=== PATIENT | female | born 1965 | race Caucasian/White ===

== ENCOUNTER 2016-10-07 09:50 | Observation (INO) | payer BC ==
[2016-10-07] MEDS ORDERED: ASPIRIN 81 MG TABLET, CHEWABLE PO ONE (09:52)
[2016-10-07 10:19] LABS: ABSOLUTE BASOPHILS # (AUTO) 0.1 10^3/uL (0.0-0.2); ABSOLUTE EOSINOPHILS # (AUTO) 0.4 10^3/uL (0.0-0.6); ABSOLUTE LYMPHOCYTES (AUTO) 1.8 10^3/uL (0.5-4.7); ABSOLUTE MONOCYTES (AUTO) 0.4 10^3/uL (0.1-1.4); ABSOLUTE NEUT (AUTO) 4.6 10^3/uL (1.7-8.2); HEMATOCRIT 39.1 % (36.0-47.0); HGB HCT DIFFERENCE -0.1; LYMPHOCYTES % (AUTO) 25.4 % (13-45); MEAN CORPUSCULAR HEMOGLOBIN 26.4 pg (27.0-33.4); MEAN CORPUSCULAR HGB CONC 33.3 g/dL (32.0-36.0); MEAN CORPUSCULAR VOLUME 79 fl (80-97); MONOCYTES % (AUTO) 6.1 % (3-13); RED BLOOD COUNT 4.93 10^6/uL (3.72-5.28); RED CELL DISTRIBUTION WIDTH 15.2 % (11.5-14.0); SEGMENTED NEUTROPHILS % (AUTO) 62.5 % (42-78); WHITE BLOOD COUNT 7.3 10^3/uL (4.0-10.5)
--- NOTE | 2016-10-07 10:26 | ER Document Report ---
ED Cardiac - General Mode of Arrival: Medic Information source: Patient - HPI Patient complains to provider of: Chest pain, Shortness of breath - mild Quality of pain: Other - see above Chest pain radiation location: Neck - left Chest pain precipitating factors: singing Cardiac risk factors: + Family history - HTN Associated symptoms: Other - see above <FANTA SHIRLEY - Last Filed: 10/07/16 10:21> <DEONNA TY - Last Filed: 10/07/16 14:25> - General Chief Complaint: Chest Pain Stated Complaint: CHEST PAIN Notes: 50 year old female with no prior medical history presents to the ED via EMS complaining of chest pain that started at 0900 this morning 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 Patient describes the pain as if "someone grabbed her heart and squeezed." The pain radiated up her left neck and lasted for 4-5 minutes. Patient reports mild shortness of breath and diaphoresis, but denies nausea. Patient's friend states that one of her co-workers might have noticed some facial drooping while she was having the chest pain. Patient states that she has had chest pain similar to this months ago lasting "a second ", but never radiating to her neck. Patient has a family history of hypertension. Patient's primary care provider is Jayden Guillermo. (FANTA SHIRLEY) - Related Data Allergies/Adverse Reactions: No Known Allergies Allergy (Verified 10/07/16 10:12) Past Medical History - General Information source: Patient - Social History Smoking Status: Never Smoker Family History: Hypertension - Medical History Medical History: Negative Past Surgical History: Reports: Hx Appendectomy, Hx Breast Surgery - reduction, Hx Cholecystectomy, Hx Tonsillectomy, Hx Tubal Ligation <FANTA SHIRLEY - Last Filed: 10/07/16 10:21> Review of Systems - Review of Systems Constitutional: See HPI, Diaphoresis EENT: No symptoms reported Cardiovascular: See HPI, Chest pain Respiratory: See HPI, Short of breath - mild Gastrointestinal: No symptoms reported. denies: Nausea Genitourinary: No symptoms reported Female Genitourinary: No symptoms reported Musculoskeletal: See HPI, Neck pain - chest pain that radiates to left neck Skin: No symptoms reported Hematologic/Lymphatic: No symptoms reported Neurological/Psychological: No symptoms reported -: Yes All other systems reviewed and negative <SHIRLEYFANTA - Last Filed: 10/07/16 10:21> Physical Exam - General General appearance: Alert In distress: None - HEENT Head: Normocephalic, Atraumatic Eyes: Normal Extraocular movements intact: Yes Pupils: PERRL Neck: Normal. No: Carotid bruit - Respiratory Respiratory status: No respiratory distress Chest status: Nontender - no chest wall tenderness to palpation Breath sounds: Normal Chest palpation: Normal - Cardiovascular Rhythm: Regular Heart sounds: Normal auscultation Pulses: Normal: Radial - Abdominal Inspection: Normal, Obese - Back Back: Normal - Extremities General upper extremity: Normal inspection, Normal ROM General lower extremity: Normal inspection, Normal ROM - Neurological Neuro grossly intact: Yes - Psychological Associated symptoms: Normal affect, Normal mood - Skin Skin Temperature: Warm Skin Moisture: Dry Skin Color: Normal <FANTA SHIRLEY - Last Filed: 10/07/16 10:21> <DEONNA TY - Last Filed: 10/07/16 14:25> - Vital signs Vitals: Resp BP Pulse Ox 10 L 140/84 H 97 10/07/16 10:04 10/07/16 10:04 10/07/16 10:04 (FANTA SHIRLEY) (DEONNA TY) Course - Laboratory Result Diagrams: 10/07/16 09:58 10/07/16 09:58 <FANTA SHIRLEY - Last Filed: 10/07/16 10:21> - Laboratory Result Diagrams: 10/07/16 09:58 10/07/16 09:58 - Diagnostic Test Radiology reviewed: Image reviewed, Reports reviewed - Chest x-ray does not show acute process - EKG Interpretation by Nm EKG shows normal: Sinus rhythm, [place], Intervals, QRS Complexes. abnormal: ST-T Waves - Poor R-wave progression in the anterior leads Rate: Normal - 64 Rhythm: NSR When compared to previous EKG there are: Previous EKG unavailable - Consults Dr. Amor Time consulted: 13:52 Consulted provider: will come to ER <DEONNA TY - Last Filed: 10/07/16 14:25> - Vital Signs Vital signs: Temp Pulse Resp BP Pulse Ox 97.9 F 14 124/81 97 10/07/16 10:09 10/07/16 13:01 10/07/16 13:01 10/07/16 13:01 (FANTA SHIRLEY) (DEONNA TY) - Laboratory Laboratory results interpreted by me: 10/07/16 09:58 MCV 79 L MCH 26.4 L RDW 15.2 H (DEONNA TY) Discharge <FANTA SHIRLEY - Last Filed: 10/07/16 10:21> - Discharge Admitting Provider: Hospitalist Unit Admitted: Telemetry <DEONNA TY - Last Filed: 10/07/16 14:25> - Discharge Clinical Impression: Chest pain Qualifiers: Chest pain type: unspecified Qualified Code(s): R07.9 - Chest pain, unspecified Condition: Stable Disposition: ADMITTED OBSERVATION Scribe Attestation: 10/07/16 14:25 I personally performed the services described in the documentation, reviewed and edited the documentation which was dictated to the scribe in my presence, and it accurately records my words and actions. (DEONNA TY) Scribe Documentation - Scribe Written by Donavon:: Donavon Silva, 10/07/2016 1031 acting as scribe for :: Elliot <FANTA SHIRLEY - Last Filed: 10/07/16 10:21>
--- NOTE | 2016-10-07 10:29 | EKG REPORT ---
SEVERITY:- ABNORMAL ECG - SINUS RHYTHM ANTERIOR INFARCT, OLD : Confirmed by: Danielle Fulton 07-Oct-2016 10:28:00
[2016-10-07 10:38] LABS: ALANINE AMINOTRANSFERASE 29 U/L (9-52); ALBUMIN 4.8 g/dL (3.5-5.0); ALKALINE PHOSPHATASE 75 U/L (38-126); ANION GAP 13 (5-19); ASPARTATE AMINO TRANSFERASE 26 U/L (14-36); BILIRUBIN,TOTAL 0.7 mg/dL (0.2-1.3); BLOOD UREA NITROGEN 13 mg/dL (7-20); CALCIUM 9.9 mg/dL (8.4-10.2); CARBON DIOXIDE 25 mmol/L (22-30); CHLORIDE 101 mmol/L (98-107); CREATINE KINASE 85 U/L (30-135); CREATININE RESULT 0.83 mg/dL (0.52-1.25); GLUCOSE 92 mg/dL (75-110); POTASSIUM 4.7 mmol/L (3.6-5.0); SODIUM 138.8 mmol/L (137-145)
[2016-10-07 10:50] LABS: CREATINE KINASE MB 0.99 ng/mL (<4.55)
[2016-10-07 10:54] LABS: TROPONIN I < 0.012 ng/mL
[2016-10-07] MEDS ORDERED: ONDANSETRON 4 MG TAB.RAPDIS PO PRN (14:47)
[2016-10-07] MEDS ORDERED: ACETAMINOPHEN 325 MG TABLET PO PRN (14:47)
--- NOTE | 2016-10-07 15:05 | PDOC H&P ---
History of Present Illness Admission Date/PCP: 10/07/2016 Patient complains of: Chest pain History of Present Illness: JAI SAUCEDA is a 50 year old female with no past medical history and takes no medications whose both parents are still alive presents with chest pain. She describes the pain as a substernal grabbing sensation that radiated up into her neck. 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 The patient that morning and had a 16 ounce cup of coffee along with a donut for her breakfast. Patient reports that she has had similar episodes before over the last several years but they have lasted only for a short period of time. The patient reports the pain lasted about 2 or 3 minutes and resolved spontaneously. EMS was called because of her pain and her blood pressure was noted to be elevated at that time. Her blood pressure since has returned to normal. The patient denies any nausea or diaphoresis associated with this. She denies any palpitations. She reports that she had a stress test about 3 years ago and it was normal. The patient has a history of anxiety but is not on any medications reports that she's been feeling very good overall. She denies any dyspnea on exertion. She denies any orthopnea PND or lower extremity edema. She denies any difficulty with exertion. She has no family history of heart disease. Past Medical History Cardiac Medical History: Reports: None Pulmonary Medical History: Reports: None EENT Medical History: Reports: None Neurological Medical History: Reports: None Endocrine Medical History: Reports: None Malignancy Medical History: Reports: None GI Medical History: Reports: None Musculoskeltal Medical History: Reports: None Skin Medical History: Reports: None Psychiatric Medical History: Reports: General Anxiety Disorder Traumatic Medical History: Reports: None Hematology: Reports: None Infectious Medical History: Reports: None Past Surgical History Past Surgical History: Reports: Appendectomy, Cholecystectomy, Tonsillectomy, Tubal Ligation Social History Information Source: Patient Lives with: Spouse/Significant other Smoking Status: Never Smoker Frequency of Alcohol Use: Rare Hx Recreational Drug Use: No Drugs: None - Advance Directive Resuscitation Status: Full Code Family History Family History: Hypertension Family History: Father is alive 75. His diabetes and hypertension. Mother 73 alive and has diabetes and breast cancer. Parental Family History Reviewed: Yes Children Family History Reviewed: No Sibling(s) Family History Reviewed.: No Medication/Allergy Allergies/Adverse Reactions: No Known Allergies Allergy (Verified 10/07/16 10:12) Review of Systems Constitutional: ABSENT: chills, fever(s), headache(s), weight gain, weight loss Eyes: ABSENT: visual disturbances Ears: ABSENT: hearing changes Cardiovascular: PRESENT: as per HPI Respiratory: ABSENT: cough, hemoptysis Gastrointestinal: ABSENT: abdominal pain, constipation, diarrhea, hematemesis, hematochezia, nausea, vomiting Genitourinary: ABSENT: dysuria, hematuria Musculoskeletal: ABSENT: joint swelling Integumentary: ABSENT: rash, wounds Neurological: ABSENT: abnormal gait, abnormal speech, confusion, dizziness, focal weakness, syncope Psychiatric: ABSENT: anxiety, depression, homidical ideation, suicidal ideation Endocrine: ABSENT: cold intolerance, heat intolerance, polydipsia, polyuria Hematologic/Lymphatic: ABSENT: easy bleeding, easy bruising Physical Exam Vital Signs: Temp Pulse Resp BP Pulse Ox 97.9 F 15 105/63 96 10/07/16 10:09 10/07/16 14:01 10/07/16 14:01 10/07/16 14:01 Intake & Output 10/06/16 10/07/16 10/08/16 06:59 06:59 06:59 Weight 97.5 kg General appearance: PRESENT: no acute distress, obese Head exam: PRESENT: atraumatic, normocephalic Eye exam: PRESENT: conjunctiva pink, EOMI, PERRLA. ABSENT: scleral icterus Ear exam: PRESENT: normal external ear exam Mouth exam: PRESENT: moist, tongue midline Neck exam: ABSENT: carotid bruit, JVD, lymphadenopathy, thyromegaly Respiratory exam: PRESENT: clear to auscultation derek. ABSENT: rales, rhonchi, wheezes Cardiovascular exam: PRESENT: RRR. ABSENT: diastolic murmur, rubs, systolic murmur Pulses: PRESENT: normal dorsalis pedis pul Vascular exam: PRESENT: normal capillary refill GI/Abdominal exam: PRESENT: normal bowel sounds, soft. ABSENT: distended, guarding, mass, organolmegaly, rebound, tenderness Rectal exam: PRESENT: deferred Extremities exam: PRESENT: full ROM. ABSENT: calf tenderness, clubbing, pedal edema Neurological exam: PRESENT: alert, awake, oriented to person, oriented to place , oriented to time, oriented to situation, CN II-XII grossly intact. ABSENT: motor sensory deficit Psychiatric exam: PRESENT: appropriate affect, normal mood Skin exam: PRESENT: dry, intact, warm. ABSENT: cyanosis, rash Results Laboratory Results: 10/07/16 09:58 10/07/16 09:58 10/07/16 10/07/16 09:58 09:58 WBC 7.3 RBC 4.93 Hgb 13.0 Hct 39.1 MCV 79 L MCH 26.4 L MCHC 33.3 RDW 15.2 H Plt Count 365 Seg Neutrophils % 62.5 Lymphocytes % 25.4 Monocytes % 6.1 Eosinophils % 5.0 Basophils % 1.0 Absolute Neutrophils 4.6 Absolute Lymphocytes 1.8 Absolute Monocytes 0.4 Absolute Eosinophils 0.4 Absolute Basophils 0.1 Sodium 138.8 Potassium 4.7 Chloride 101 Carbon Dioxide 25 Anion Gap 13 BUN 13 Creatinine 0.83 Est GFR ( Amer) > 60 Est GFR (Non-Af Amer) > 60 Glucose 92 Calcium 9.9 Total Bilirubin 0.7 AST 26 ALT 29 Alkaline Phosphatase 75 Total Protein 8.0 Albumin 4.8 10/07/16 10/07/16 10/07/16 09:58 09:58 12:02 Creatine Kinase 85 CK-MB (CK-2) 0.99 Troponin I < 0.012 < 0.012 Impressions: Chest X-Ray 10/07/16 09:52 IMPRESSION: NO ACUTE RADIOGRAPHIC FINDING IN THE CHEST. Assessment & Plan - Diagnosis (1) Chest pain Qualifiers: Chest pain type: unspecified Qualified Code(s): R07.9 - Chest pain, unspecified Is this a current diagnosis for this admission?: YesPlan: The patient has no risk factors for heart disease. It's highly unlikely that this represents coronary artery disease. We will monitor on telemetry however and check serial cardiac enzyme. We'll treat with a baby aspirin daily. Most likely represents gastroesophageal reflux disease in the patient is instructed to stop drinking caffeinated drinks. - Time Time Spent: 50 to 70 Minutes - Plan Summary Plan Summary: We'll admit as an observation as I anticipate this will require less than two midnight hospital stay.
[2016-10-07 15:42] LABS: CREATINE KINASE MB 0.87 ng/mL (<4.55)
[2016-10-07 15:43] LABS: TROPONIN I < 0.012 ng/mL
[2016-10-07 22:20] LABS: TROPONIN I < 0.012 ng/mL
[2016-10-08 04:36] LABS: CREATINE KINASE MB 0.59 ng/mL (<4.55)
[2016-10-08 04:38] LABS: TROPONIN I < 0.012 ng/mL
[2016-10-08] MEDS ORDERED: ASPIRIN 81 MG TABLET, ENT COATED PO SCH (10:00)
--- NOTE | 2016-10-08 12:55 | EKG REPORT ---
SEVERITY:- ABNORMAL ECG - SINUS RHYTHM PROBABLE ANTEROSEPTAL INFARCT, AGE INDETERM : Confirmed by: Danielle Fulton 08-Oct-2016 12:54:35
[2016-10-08 16:17] VITALS: BP 126/79
--- NOTE | 2016-10-08 16:17 | PDOC DISCHARGE SUMMARY ---
General - Admit/Disc Date/PCP Admission Date/Primary Care Provider: 10/07/16 14:47 Discharge Date: 10/08/16 - Discharge Diagnosis (1) Chest pain Is this a current diagnosis for this admission?: YesSummary: Most likely secondary to gastroesophageal reflux disease with a normal Cardiolite stress test - Additional Information Resuscitation Status: Full Code Discharge Diet: Regular Discharge Activity: Activity As Tolerated Home Medications: Aspirin [Aspirin EC] 81 mg PO DAILY PRN #1 pkg 10/08/16 Omeprazole Magnesium [Prilosec Otc] 20 mg PO DAILY #1 tablet. 10/08/16 History of Present Illness History of Present Illness: JAI SAUCEDA is a 50 year old female with no past medical history and takes no medications whose both parents are still alive presents with chest pain. She describes the pain as a substernal grabbing sensation that radiated up into her neck. 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 The patient that morning and had a 16 ounce cup of coffee along with a donut for her breakfast. Patient reports that she has had similar episodes before over the last several years but they have lasted only for a short period of time. The patient reports the pain lasted about 2 or 3 minutes and resolved spontaneously. EMS was called because of her pain and her blood pressure was noted to be elevated at that time. Her blood pressure since has returned to normal. The patient denies any nausea or diaphoresis associated with this. She denies any palpitations. She reports that she had a stress test about 3 years ago and it was normal. The patient has a history of anxiety but is not on any medications reports that she's been feeling very good overall. She denies any dyspnea on exertion. She denies any orthopnea PND or lower extremity edema. She denies any difficulty with exertion. She has no family history of heart disease. Hospital Course Hospital Course: 50-year-old female with no significant risk factors who presented with chest pain. She was monitored on telemetry and had negative cardiac enzymes. She then underwent a Cardiolite stress test which was negative for any reversible ischemia. It's felt this most likely represents gastroesophageal reflux disease. She is instructed to take Prilosec [id number] along with an aspirin 81 mg daily. We'll have her follow up with cardiology in 2 weeks to see if she still having pain and see if she needs any further workup. The most likely the cause is gastroesophageal reflux disease. Physical Exam Vital Signs: Temp Pulse Resp BP Pulse Ox 98.0 F 85 14 124/65 99 10/08/16 16:04 10/08/16 16:04 10/08/16 16:04 10/08/16 16:04 10/08/16 16:04 Intake & Output 10/07/16 10/08/16 10/09/16 06:59 06:59 06:59 Intake Total 560 Balance 560 Weight 97.5 kg General appearance: PRESENT: no acute distress Eye exam: PRESENT: conjunctiva pink. ABSENT: scleral icterus Ear exam: PRESENT: normal external ear exam Mouth exam: PRESENT: moist, tongue midline Neck exam: ABSENT: JVD Respiratory exam: PRESENT: clear to auscultation derek. ABSENT: rales, rhonchi, wheezes Cardiovascular exam: PRESENT: RRR. ABSENT: diastolic murmur, rubs, systolic murmur GI/Abdominal exam: PRESENT: normal bowel sounds, soft. ABSENT: distended, guarding, mass, organolmegaly, rebound, tenderness Extremities exam: ABSENT: calf tenderness, clubbing, pedal edema Neurological exam: PRESENT: alert, awake, oriented to person, oriented to place , oriented to time, oriented to situation Skin exam: PRESENT: dry, intact, warm. ABSENT: cyanosis, rash Results Laboratory Results: 10/07/16 10/07/16 10/07/16 15:07 15:07 21:30 Creatine Kinase 65 69 CK-MB (CK-2) 0.87 Troponin I < 0.012 10/07/16 10/08/16 10/08/16 21:30 03:42 03:42 Creatine Kinase 61 CK-MB (CK-2) 0.60 0.59 Troponin I < 0.012 < 0.012 Impressions: Chest X-Ray 10/07/16 09:52 IMPRESSION: NO ACUTE RADIOGRAPHIC FINDING IN THE CHEST. Qualifiers PATEINT BEING DISCHARGED WITH ANY OF THE FOLLOWING DIAGNOSIS?: No Plan Discharge Plan: Patient is discharged home and will follow up with cardiology in 2 weeks and follow up with primary care also in 2 weeks. Time Spent: Less than 30 Minutes
--- NOTE | 2016-10-10 19:02 | DRAGON STRESS TEST REPORT ---
Exercise EKG treadmill Cardiolite stress test using SPECT. Data procedure: 10/08/2016 Ordering Physician: Dr. Maciel Amor. Primary Care Physician. Dr. Jayden Guillermo Indication: Chest pain. Coronary risk factors: Age. Significant physical findings prior to stress testing show a blood pressure of 131/77, and a heart rate of 80 beats per minute. Auscultation of the heart shows normal S1 and S2.No S3 or S4 gallops. Systolic murmur in the left sternal border and apex. Lungs are clear to auscultation and percussion. Resting 12-lead EKG: Sinus Rhythm. Within Normal Limits. Procedure: The patient was excised on a standard Pancho protocol. The patient walked a total of 5 minutes and 03 seconds on this protocol and reached a peak heart rate of 151] beats per minute, which is 89% of maximum predicted heart rate for age. This is at a workload of 6 METS. The test was stopped because of fatigue and, and achievement of target heart rate. The patient described no symptoms of chest pain/discomfort. Exercise EKG's show: 0.[address] segment depression in multiple leads, which is decreased vocal for ischemia. Arrhythmias seen:None The blood pressure response was borderline hypertensive. At peak exercise the blood pressure was 199/74 millimeters of Hg. The double product was 29.2 K. Summary of findings and interpretation: 1. No chest pain or chest discomfort symptoms reproduced. 2. Equivocal EKG evidence of ischemia in the form of 0.[address] segment depression. [? False-positive] 3. Borderline hypertensive blood pressure response. 4. No arrhythmias seen. 5. Fair exercise tolerance, fair aerobic capacity. Treadmill stress test equivocal for ischemia by EKG criteria. Recommendations: Correlate with nuclear Cardiolite images. Nuclear data: At rest the patient was given 14.69 millicuries of technetium 99 sestamibi, and as per protocol rest none gated SPECT images were obtained. The patient was exercised on a treadmill [see exercise physiology]. One minute prior to termination of exercise, 41.5 millicuries of technetium and there sestamibi was injected intravenously. As per protocol stress gated images were obtained. Impression: Review of images show that there is liver contamination artifact. In spite of this all segments of the myocardium had normal perfusion at rest, and normal perfusion post exercise. All segments of the myocardium had normal motion, contraction, and thickening by gated study. T. I D. ratio was normal at 1.13 The computer read rest and stress left ventricular ejection fractions were 52% and 48% respectively. Visually both the ejection fractions were normal in excess of 60 %. Conclusions: 1. No clinical symptoms of exercise-induced myocardial ischemia at a peak heart rate of 151 beats per minute, patient having achieved 89]% of maximum predicted heart rate for age, at a workload of 6 METS. 2. Equivocal EKG evidence of exercise-induced myocardial ischemia. , Most likely false-positive 3. No arrhythmias seen. 4. No scintigraphic evidence of exercise-induced myocardial ischemia. 5.No scintigraphic evidence of myocardial infarction/scar. Recommendations 1.Close clinical follow-up of the patient, including periodic readings of the patient's blood pressure, to see if she needs antihypertensives. . 2.Aggressive coronary risk factor modification, and treatment of underlying comorbidities. 3. Recommend checking an echocardiogram for To LVEF correlation. PRISCILLA
== END 2016-10-08 16:38 | disposition home or self-care (01) ==
LOC: ER 09:50 → EH 14:47 → UNDOADMOB 15:11 → 5 16:42
PROVIDERS: ADMIT Internal Medicine; ATTEND Internal Medicine
DX: R07.9 Chest pain, unspecified (principal); I10 Essential (primary) hypertension
CPT/HCPCS: 93005 ×2; 99285; 36415 ×2; 82553 ×2; 82550 ×2; 85025; 80053; 84484 ×2; 93017; 71010; 78452; 93010 ×2; G0378 ×3; A9500; J3490 ×2; Q9969